=== PATIENT | female | born 1970 | race Caucasian/White ===

== ENCOUNTER 2020-11-05 16:53 | Outpatient (REF) | payer BC, SELFPAY | END 2020-11-05 16:54 | disposition home or self-care (01) | LOC: HO.BBR 16:53 | PROVIDERS: Visit Provider Internal Medicine | DX: Z13.89 Encounter for screening for other disorder (principal) ==

== ENCOUNTER 2021-01-06 15:06 | Outpatient (REF) | payer OTHER, SELFPAY | END 2021-01-06 15:07 | disposition home or self-care (01) | LOC: HO.BBR 15:06 | PROVIDERS: PCP Internal Medicine; Visit Provider Internal Medicine | DX: Z13.89 Encounter for screening for other disorder (principal) ==

== ENCOUNTER 2021-03-05 14:03 | Outpatient (REF) | payer OTHER, SELFPAY | END 2021-03-05 14:04 | disposition home or self-care (01) | LOC: HO.BBR 14:03 | PROVIDERS: Visit Provider Internal Medicine | DX: Z13.89 Encounter for screening for other disorder (principal) ==

== ENCOUNTER 2021-05-12 12:46 | Outpatient (REF) | payer OTHER, SELFPAY | END 2021-05-12 12:47 | disposition home or self-care (01) | LOC: HO.BBR 12:46 | PROVIDERS: Visit Provider Internal Medicine | DX: Z13.89 Encounter for screening for other disorder (principal) ==

== ENCOUNTER 2021-07-13 15:25 | Outpatient (REF) | payer OTHER, SELFPAY | END 2021-07-13 15:26 | disposition home or self-care (01) | LOC: HO.BBR 15:25 | PROVIDERS: PCP Internal Medicine; Visit Provider Internal Medicine | DX: Z13.89 Encounter for screening for other disorder (principal) ==

== ENCOUNTER 2021-09-22 15:12 | Outpatient (REF) | payer OTHER, SELFPAY | END 2021-09-22 15:13 | disposition home or self-care (01) | LOC: HO.BBR 15:12 | PROVIDERS: Visit Provider Internal Medicine | DX: Z13.89 Encounter for screening for other disorder (principal) ==

== ENCOUNTER 2021-12-22 14:58 | Outpatient (REF) | payer OTHER, SELFPAY | END 2021-12-22 14:59 | disposition home or self-care (01) | LOC: HO.BBR 14:58 | PROVIDERS: Visit Provider Internal Medicine | DX: Z13.89 Encounter for screening for other disorder (principal) ==

== ENCOUNTER 2022-09-06 13:56 | Outpatient (REF) | payer OTHER, SELFPAY | END 2022-09-06 13:57 | disposition home or self-care (01) | LOC: HO.BBR 13:56 | PROVIDERS: PCP Internal Medicine; Visit Provider Internal Medicine | DX: Z13.89 Encounter for screening for other disorder (principal) ==

== ENCOUNTER 2023-07-25 11:52 | Outpatient (REF) | payer OTHER, SELFPAY | END 2023-07-25 11:53 | disposition home or self-care (01) | LOC: HO.BBR 11:52 | PROVIDERS: PCP Internal Medicine; Visit Provider Internal Medicine | DX: Z13.89 Encounter for screening for other disorder (principal) ==

== ENCOUNTER 2024-02-03 11:02 | Outpatient (REF) | payer OTHER, SELFPAY | END 2024-02-03 11:03 | disposition home or self-care (01) | LOC: HO.BBR 11:02 | PROVIDERS: PCP Internal Medicine; Visit Provider Internal Medicine | DX: Z13.89 Encounter for screening for other disorder (principal) ==